=== PATIENT | male | born 1965 | race Caucasian/White ===

== ENCOUNTER → 2021-08-07 | Outpatient (CLI) | payer OTHER ==
--- NOTE | 2021-08-07 12:05 | KCIC ---
EXAMINATION: Magnetic resonance imaging (MRI) of the lumbar spine without contrast 08/07/2021 10:00 AM HISTORY: Chronic midline low back pain TECHNIQUE: Multiplanar multi-weighted MRI of the lumbar spine was performed without intravenous contr ast using the standard lumbar spine protocol. Contrast information: None administered. COMPARISON: None available. FINDINGS: The alignment of the lumbar spine is normal. Vertebral bodies demonstrate normal signal intensity on all sequences. There are no compression fractures. The conus medullaris terminates at the level of L1. The distal spinal cord signal intensity is normal. There is mild disc height loss L5-S1 with Mo dic type I endplate degenerative changes and vacuum disc phenomena. Endplate degenerative changes are asymmetric to the right. Limited views of the abdomen and pelvis show no soft tissue abnormality. T he aorta is normal. L1-L2: The disc is normal in configuration. There is no facet arthropathy. There is no neuroforaminal stenosis. There is no spinal canal stenosis. L2-L3: The disc is normal in configuration. There is no facet arthropathy. There is no neuroforaminal stenosis. There is no spinal canal stenosis. L3-L4: The disc is normal in configuration. There is no facet arthropathy. There is no neuroforaminal stenosis. There is no spinal canal stenosis. L4-L5: Mild disc bulge. There is mild facet arthropathy. There is no neuroforaminal stenosis. There i s no spinal canal stenosis. L5-S1: There is a circumferential disc bulge. There is a central disc protrusion. Mild facet arthropa thy ligamentum flavum infolding. Moderate bilateral neuroforaminal stenosis. There is mild narrowing the left lateral recess. No significant spinal canal stenosis. IMPRESSION: Mild degenerative changes of the lumbar spine as described in detail above. Findings are centered at L5-S1 with associated Modic type I endplate degenerative changes. Electronically signed by: Becky Celaya MD (08/07/2021 12:02 PM) [id number]
== END ==
LOC: KCIC MRI 09:44
PROVIDERS: ATTEND Internal Medicine
DX: G89.29 Other chronic pain (principal); M47.817 Spondylosis without myelopathy or radiculopathy, lumbosacral region; M48.07 Spinal stenosis, lumbosacral region; M51.27 Other intervertebral disc displacement, lumbosacral region; M48.8X7 Other specified spondylopathies, lumbosacral region
CPT/HCPCS: 72148